=== PATIENT | male | born 1950 | race Caucasian/White ===

== ENCOUNTER → 2016-10-03 | Outpatient (CLI) | payer MEDICARE, BC ==
[2016-10-03 09:30] LABS: THYROID STIM HORMONE (HS) 2.16 uIU/ml (0.358-4.75)
== END | disposition home or self-care (01) ==
LOC: LAB 08:33
PROVIDERS: Pediatrics Pediatric Transplant Hepatology
DX: E78.5 Hyperlipidemia, unspecified (principal); E11.40 Type 2 diabetes mellitus with diabetic neuropathy, unspecified

== ENCOUNTER 2020-03-29 05:26 | Emergency (ER) | payer MEDICARE, BC ==
[~2020-03-29] VITALS: Ht 180.3 cm; Wt 94.3 kg
[2020-03-29 06:05] LABS: BASO % 0.4 % (0.0-1.0); EOS # 0.1 10*3/uL (0.0-0.4); EOS % 0.9 % (1.0-4.0); HEMATOCRIT 46.5 % (42.0-52.0); LYMPH # 2.6 10*3/uL (1.3-4.4); LYMPH % 27.8 % (27.0-41.0); MEAN CELL VOLUME 81.4 fl (80.0-94.0); MEAN CORPUSCULAR HGB 27.5 pg (27.0-31.0); MEAN CORPUSCULAR HGB CONC 33.8 g/dl (33.0-37.0); MEAN PLATELET VOLUME 9.9 fl (9.6-12.3); MONO # 0.9 10*3/uL (0.1-1.0); MONO % 9.5 % (3.0-9.0); NEUT # 5.6 10*3/uL (2.3-7.9); NEUT % 61.2 % (47.0-73.0); PLATELET COUNT AUTOMATED 213 10*3/uL (130-400); RED BLOOD COUNT 5.71 10*6/uL (4.50-5.90); RED CELL DISTRI WIDTH 13.8 % (0-14.5); WHITE BLOOD COUNT 9.2 10*3/uL (4.8-10.8)
[2020-03-29] MEDS ORDERED: LEXAPRO20 MG PO (06:13)
[2020-03-29] MEDS ORDERED: TOPROL XL25 MG PO (06:14)
[2020-03-29] MEDS ORDERED: OMEPRAZOLE MAGN20 MG PO (06:14)
[2020-03-29] MEDS ORDERED: CRESTOR20 M1 PO (06:14)
[2020-03-29] MEDS ORDERED: ASPIRIN CHEWABL81 MG PO (06:15)
[2020-03-29] MEDS ORDERED: SYNTHROID25 MCG PO (06:15)
[2020-03-29 06:16] LABS: ACT PARTIAL THROMBO TIME 26.1 SECONDS (20.0-32.1)
[2020-03-29] MEDS ORDERED: CHLORDIAZEPOXID10 M2 PO (06:16)
[2020-03-29 06:24] LABS: ALBUMIN 3.4 gm/dl (3.1-4.5); ALKALINE PHOSPHATASE 83 U/L (45-117); BUN 14 mg/dl (7-24); CHLORIDE 105 mmol/L (98-107); POTASSIUM 3.7 mmol/L (3.5-5.1); SGOT/AST 12 IU/L (3-35); SODIUM 137 mmol/L (136-145); TOTAL PROTEIN 6.9 gm/dL (6.4-8.2)
[2020-03-29 06:25] LABS: SGPT/ALT 21 U/L (12-78)
[2020-03-29 06:31] LABS: TROPONIN I < 0.015 ng/ml (<0.045)
== END 2020-03-29 07:40 | disposition short-term general hospital (02) ==
LOC: ED 05:26
PROVIDERS: Emergency Medicine
DX: I44.2 Atrioventricular block, complete (principal); Z79.899 Other long term (current) drug therapy; Z79.82 Long term (current) use of aspirin

== ENCOUNTER 2022-07-15 00:50 | Emergency (ER) | payer MEDICARE, BC ==
[~2022-07-15] VITALS: Wt 88.5 kg
[~2022-07-15 00:50] MED LIST: ASPIRIN CHEWABL81 MG PO; CHLORDIAZEPOXID10 M2 PO; CRESTOR20 M1 PO; LEXAPRO20 MG PO; OMEPRAZOLE MAGN20 MG PO; SYNTHROID25 MCG PO; TOPROL XL25 MG PO
[2022-07-15 01:32] LABS: BASO # 0.1 10*3/uL (0.0-0.1); BASO % 0.4 % (0.0-1.0); EOS # 0.1 10*3/uL (0.0-0.4); HEMATOCRIT 46.1 % (42.0-52.0); LYMPH # 1.3 10*3/uL (1.3-4.4); LYMPH % 10.8 % (27.0-41.0); MEAN CELL VOLUME 82.2 fl (80.0-94.0); MEAN CORPUSCULAR HGB 27.6 pg (27.0-31.0); MEAN CORPUSCULAR HGB CONC 33.6 g/dl (33.0-37.0); MEAN PLATELET VOLUME 10.3 fl (9.6-12.3); MONO % 8.7 % (3.0-9.0); NEUT # 9.3 10*3/uL (2.3-7.9); NEUT % 78.7 % (47.0-73.0); PLATELET COUNT AUTOMATED 216 10*3/uL (130-400); RED BLOOD COUNT 5.61 10*6/uL (4.50-5.90); RED CELL DISTRI WIDTH 13.7 % (0-14.5); WHITE BLOOD COUNT 11.8 10*3/uL (4.8-10.8)
[2022-07-15 01:53] LABS: ALKALINE PHOSPHATASE 88 U/L (46-116); BUN 10 mg/dl (9-23); CHLORIDE 102 mmol/L (98-107); POTASSIUM 4.1 mmol/L (3.4-5.1); SGPT/ALT 25 U/L (10-49); TOTAL PROTEIN 6.6 gm/dL (6.0-8.0)
[2022-07-15] MEDS ORDERED: SEPTDS PO (03:14)
== END 2022-07-15 03:19 | disposition home or self-care (01) ==
LOC: ED 00:50
PROVIDERS: Internal Medicine
DX: L02.31 Cutaneous abscess of buttock (principal); Z91.041 Radiographic dye allergy status; I48.91 Unspecified atrial fibrillation; Z86.73 Personal history of transient ischemic attack (TIA), and cerebral infarction without residual deficits